=== PATIENT | male | born 1940 | race Caucasian/White ===

== ENCOUNTER → 2017-04-08 | Outpatient (CLI) | payer MEDICARE, OTHER ==
[~2017-04-08] MED LIST: ASPIRIN ADULT L81 M2 PO; PROBIOTIC FORMU1 CA2 PO; VALSARTAN AND H1 TA1 PO; ZOCOR20 MG PO
--- NOTE | 2017-04-08 10:00 | RADIOLOGY REPORT PS360 ---
CT ABD PELVIS W/O CONTRAST CLINICAL INDICATION: LT KIDNEY CYST,AAA ORDERING PHYSICIAN: Rosina Thornton MD PATIENT AGE: 77 years COMPARISON: 11/04/2014 TECHNIQUE: Axial images obtained with sagittal and coronal reformats. PROCEDURE: Oral Contrast: None IV Contrast: None . FINDINGS: Mild fibrotic changes are present in the lung bases. The liver, spleen, adrenal glands, and pancreas are unremarkable. No calcified gallstones. There is an 8 x 8 cm left renal cyst projecting off of the superior pole of the left kidney. No hydronephrosis. No renal calculi. The left renal cyst is only slightly larger when compared to 11/04/2014 previously measuring 8 x 7.6 cm There is a fusiform infrarenal abdominal aortic aneurysm which measures 4.1 x 3.5 cm AP and transverse previously measuring 3.7 x 3.3 cm. No evidence of retroperitoneal hemorrhage. Unremarkable appendix. Prostate is prominent at 6 x 7 cm previously 5.7 x 6.6 cm. There is minimal thickening of the urinary bladder wall. There are bilateral inguinal hernias. The right inguinal hernia contains a knuckle of small bowel. No bowel obstruction. The left inguinal hernia containing fat No acute bony anomalies. IMPRESSION: 1. 8 cm benign-appearing left renal cyst not significant change. 2. Fusiform infrarenal abdominal aortic aneurysm which is slightly larger measuring up to 4.1 cm in maximum AP dimension previously at 3.7 cm. 3. Enlarged prostate. 4. Bilateral inguinal hernias. The right inguinal hernia does contain a small amount of small bowel without obstruction
== END ==
LOC: RAD 07:48
DX: N28.1 Cyst of kidney, acquired (principal); I71.9 Aortic aneurysm of unspecified site, without rupture